=== PATIENT | female | born 1990 | race Caucasian/White ===

== ENCOUNTER 2016-10-29 11:04 | Inpatient (IN) | payer OTHER ==
[~2016-10-29] VITALS: Ht 160 cm; Wt 77.6 kg
[2016-10-30] MEDS ORDERED: LACTATED RINGER'S 1000ML 1,000 ML IV PRN (01:22)
[2016-10-30] MEDS ORDERED: DINOPROSTONE 10 MG INSERT PV STA (01:25)
[2016-10-30] MEDS ORDERED: PRENTAB26 PO (01:30)
[2016-10-30] MEDS ORDERED: BUPR8SUB19 SL (01:30)
[2016-10-30 01:43] LABS: HEMATOCRIT 35.9 % (37-47); MEAN CELL VOLUME 100.6 fL (80-100); MEAN CORPUSCULAR HGB CONC 34.8 g/dl (32-36); MEAN PLATELET VOLUME 10.3 fL (7.4-10.4); PLATELET COUNT 262 K/uL (130-400); RED BLOOD COUNT 3.57 M/uL (4.2-5.4); WHITE BLOOD COUNT 9.12 K/uL (4.8-10.8)
[2016-10-30] MEDS ORDERED: BUTORPHANOL TARTRATE 1 MG/ML VIAL IV PRN (02:00)
[2016-10-30] MEDS: LACTATED RINGER'S 1000ML 1,000 ML IV SCH ×3 (02:00→20:05)
[2016-10-30] MEDS ORDERED: ONDANSETRON INJ 2 MG/ML 2 ML VIAL IV PRN ×2 (02:00→05:30)
[2016-10-30 02:49] LABS: BENZODIAZEPINE, URINE NEG (NEG); COCAINE,URINE NEG (NEG); PHENCYCLIDINE, URINE NEG (NEG)
--- NOTE | 2016-10-30 03:09 | HISTORY & PHYSICAL EXAMINATION ---
DATE OF ADMISSION: 10/30/2016 CHIEF COMPLAINT: Induction of labor. HISTORY OF PRESENT ILLNESS: The patient is a 26-year-old G1, P0 at 41 weeks of gestation who is presenting for induction of labor for postdates. She has no complaints, no contractions, leakage of fluid, or vaginal bleeding. She reports good movements. Her has been uncomplicated except: 1. She is a smoker. 2. On Subutex, h/o heroin use. Agrees for UDS (Urine drug screening) today. 3. Septate uterus. 4. Polyhydramnios, resolved. PAST MEDICAL HISTORY: As above. PAST SURGICAL HISTORY: None. ALLERGIES: No known drug allergies. MEDICATIONS: Subutex 8 mg sublingual daily, vitamins. SOCIAL HISTORY: The patient is a smoker. Smokes 1/2 pack cigarette/ day. She used alcohol after her LMP, none since knowledge of . She has a history of heroin use and now on Subutex. GYNECOLOGIC HISTORY: The patient denies any history of STDs including Chlamydia, gonorrhea, herpes. This is her first . LABS: Blood type is A positive, antibody screen negative, rubella titer positive, RPR nonreactive, hepatitis B surface antigen negative. GC and chlamydia cultures were negative. Urine culture was negative. H and H was 13/39. Quad screening testing was negative. Glucola was normal 101 mg per deciliter. Repeat H and H was 10.7/31.9, platelets 290. GBS culture was negative on 09/18/2016. PHYSICAL EXAMINATION: VITAL SIGNS: Stable, afebrile. CARDIOVASCULAR SYSTEM: S1, S2. RRR. LUNGS: Clear to auscultation bilaterally. ABDOMEN: Soft, gravid. EXTREMITIES: Nontender, no edema. PELVIC: Cervix 1-2 cm/ 50%/ -2. heart rate 140s, reactive. Kelly, mild irregular contractions. ASSESSMENT AND PLAN: The patient is a 26-year-old G1, P0 at 41 weeks of gestation presenting for induction of labor for postdates. Vital signs stable, afebrile. GBS negative. heart rate reassuring. Plan Admit, start IV fluids, cervical ripening with Cervidil. UDS Anticipate spontaneous vaginal delivery. MTDD
[2016-10-30] MEDS ORDERED: BUPIVACAINE 0.25% 30 ML VIAL ONE ×2 (04:40→23:00)
[2016-10-30] MEDS ORDERED: EpHEDrine SULFATE INJ 50 MG/ML AMP ONE (04:41)
[2016-10-30] MEDS ORDERED: FENTANYL 2MCG/ML ROPIV 1.25MG/ML 100ML BAG EPI ONE (04:41)
[2016-10-30] MEDS ORDERED: FENTANYL CITRATE INJ 50 MCG/1 ML 2 ML VIAL ONE ×3 (04:41→23:01)
[2016-10-30] MEDS ORDERED: LACTATED RINGER'S 1000ML 500 ML IV PRN ×2 (05:20→13:34)
[2016-10-30] MEDS ORDERED: NALOXONE HCL INJ 1 MG in SODIUM CHLORIDE 0.9% 1000ML 1,000 ML IV PRN (05:20)
[2016-10-30] MEDS ORDERED: DiphenhydrAMINE HCL 50 MG/ML VIAL IV PRN (05:30)
[2016-10-30] MEDS ORDERED: NALBUPHINE HCL INJ 10 MG/ML AMP IV PRN (05:30)
[2016-10-30] MEDS ORDERED: EpHEDrine SULFATE INJ 50 MG/ML AMP IV PRN (05:30)
[2016-10-30] MEDS ORDERED: NALOXONE HCL INJ 0.4 MG/1 ML VIAL/CARP IV PRN (05:30)
[2016-10-30] MEDS: FENTANYL 2MCG/ML ROPIV 1.25MG/ML 100ML BAG EPI PRN ×6 (07:10→23:35)
[2016-10-30] MEDS: BUPRENORPHINE HCL 8 MG SUBL SL SCH ×2 (09:42→20:05)
[2016-10-30] MEDS ORDERED: OXYTOCIN 30 UNITS/500ML NSS IV PRN (13:45)
[2016-10-31] VITALS (9 sets, daily range): BP systolic 95–110; BP diastolic 60–73; PULSE 69–73; TEMP 36.7–36.8; O2SAT 95–100
[2016-10-31] MEDS ORDERED: TERBUTALINE SULFATE 1 MG/ML VIAL SQ STA (01:15)
[2016-10-31] MEDS ORDERED: NURSING VERBAL MED ORDER ONE (01:15)
[2016-10-31] MEDS: LACTATED RINGER'S 1000ML 1,000 ML IV SCH (01:16)
[2016-10-31] MEDS ORDERED: CEFAZOLIN IV 2,000 MG in DEXTROSE 5% 50ML 50 ML IV STA (03:52)
[2016-10-31] MEDS ORDERED: CITRIC ACID/SODIUM CITRATE 15 ML UDC PO STA (03:52)
[2016-10-31] MEDS ORDERED: MoRPHine SULFATE PF 1 MG/ML 10 ML AMP/VIAL ONE (04:33)
[2016-10-31] MEDS ORDERED: LIDOCAINE/EPINEPHRINE 2% 1:200,000 20 ML SDV ONE (04:53)
[2016-10-31] MEDS ORDERED: METOCLOPRAMIDE HCL INJ 5 MG/ML 2 ML VIAL ONE (04:53)
[2016-10-31] MEDS ORDERED: ONDANSETRON INJ 2 MG/ML 2 ML VIAL ONE (04:53)
[2016-10-31] MEDS ORDERED: OXYTOCIN INJ 10 UNITS/ML VIAL ONE ×3 (04:53→05:13)
[2016-10-31] MEDS ORDERED: DC INTRASPINAL MORPHINE SCH (04:55)
[2016-10-31] MEDS ORDERED: BENZOCAINE 20% AER SPR 82.5 GM CAN EXT PRN (05:30)
[2016-10-31] MEDS ORDERED: LACTATED RINGER'S 1000ML 1,000 ML IV SCH (05:30)
[2016-10-31] MEDS ORDERED: SENNA 8.6 MG TAB PO PRN (05:30)
[2016-10-31] MEDS ORDERED: LANOLIN OINT EXT PRN ×2 (05:30)
[2016-10-31] MEDS ORDERED: HYDROCORTISONE ACETATE 25 MG SUPP PR PRN (05:30)
[2016-10-31] MEDS ORDERED: DIPHTHERIA/TETANUS/PERTUSSIS 0.5 ML SYR/VIAL IM. ONE (05:30)
[2016-10-31] MEDS ORDERED: MAGNESIUM HYDROXIDE SUSP 30 ML UDC PO PRN (05:30)
[2016-10-31] MEDS ORDERED: SUPERCREAM 0.870 % 15GM JAR EXT PRN (05:30)
--- NOTE | 2016-10-31 05:37 | [facility] Post Operative Brief Note ---
Immediate Operative Summary Operative Date October 31, 2016. Pre-Operative Diagnosis IUP 41.1 weeks; failure to progress, hx subutex use Post-Operative Diagnosis Same Procedure(s) Performed Primary Caesarean Section for a live male child at [address] Foley Export Clerk Surgeon(s) Rosie Aguirre RN Estimated Blood Loss 800cc Findings Patient delivered a viable male infant in the vertex position at 0446 on with 's of 9 at 1 minute and 10 at 5 minutes weighing 8# 11.4 oz. Cord blood obtained. An intact placenta with a 3 VC delivered manually at 0448 and sent to pathology. Normal uterus and bilateral tubes and ovaries noted. Both patient and baby tolerated the procedure well and was sent to recovery with stable vital signs. Fluids (cc crystalloids) 2200 Specimens Placenta (Exam) Cord Blood Drains Johns to gravity Anesthesia epidural bolus Complication(s) None Disposition L&D
[2016-10-31] MEDS ORDERED: NALOXONE HCL INJ 1 MG in SODIUM CHLORIDE 0.9% 1000ML 1,000 ML IV PRN ×4 (05:45)
[2016-10-31] MEDS ORDERED: SODIUM CHLORIDE 0.9% 1000ML 1,000 ML IV PRN (05:45)
[2016-10-31] MEDS ORDERED: ONDANSETRON INJ 2 MG/ML 2 ML VIAL IV PRN ×3 (05:45→21:00)
[2016-10-31] MEDS ORDERED: NALOXONE HCL INJ 0.08 MG in SYRINGE 1.8 ML IV PRN (05:45)
[2016-10-31] MEDS ORDERED: ATROPINE SULFATE 0.1 MG/ML 5ML SYR IV PRN (05:45)
[2016-10-31] MEDS ORDERED: NALOXONE HCL 0.4 MG/1 ML VIAL/CARP IV PRN (05:45)
[2016-10-31] MEDS ORDERED: NALBUPHINE HCL INJ 10 MG/ML AMP IV PRN (05:45)
[2016-10-31] MEDS ORDERED: NO NARCOTICS OR SEDATIVES SCH (05:45)
[2016-10-31] MEDS ORDERED: PROMETHAZINE HCL INJ 12.5 MG in SODIUM CHLORIDE 0.9% 50ML 50 ML IV PRN (05:45)
[2016-10-31] MEDS ORDERED: KETOROLAC TROMETHAMINE 30 MG/ML VIAL IV. PRN ×3 (05:45→21:00)
[2016-10-31] MEDS ORDERED: DiphenhydrAMINE HCL 50 MG/ML VIAL IV PRN ×2 (05:45→14:00)
[2016-10-31] MEDS ORDERED: MEPERIDINE HCL 25 MG/ML CARP IV PRN ×2 (05:45)
[2016-10-31] MEDS ORDERED: MoRPHine SULFATE PF 1 MG/ML 10 ML AMP/VIAL EPI PRN (05:45)
[2016-10-31] MEDS ORDERED: LACTATED RINGER'S 1000ML 500 ML IV PRN (05:45)
[2016-10-31] MEDS ORDERED: EpHEDrine SULFATE INJ 50 MG/ML AMP IV PRN ×2 (05:45)
[2016-10-31] MEDS ORDERED: PROMETHAZINE HCL INJ 25 MG in SODIUM CHLORIDE 0.9% 50ML 50 ML IV PRN (05:45)
[2016-10-31] MEDS ORDERED: PHENYLEPHRINE 100MCG/ML 5ML SYR IV PRN (05:45)
[2016-10-31] MEDS: OXYTOCIN INJ 30 UNITS in LACTATED RINGER'S 1000ML 1,000 ML IV SCH ×2 (06:37→16:01)
--- NOTE | 2016-10-31 07:44 | Anesthesiology Progress Note ---
Anesthesia Post Op Note Date & Time October 31, 2016 at 07:44 Notes Mental Status: alert / awake / arousable, participated in evaluation Pt Amnestic to Procedure: Yes Nausea / Vomiting: adequately controlled Pain: adequately controlled Airway Patency, RR, SpO2: stable & adequate BP & HR: stable & adequate Hydration State: stable & adequate Anesthetic Complications: no major complications apparent
--- NOTE | 2016-10-31 07:47 | OPERATIVE REPORT ---
DATE OF OPERATION: 10/31/2016 PREOPERATIVE DIAGNOSES: 1. Intrauterine at 41 weeks and 1 day gestation. 2. Failure to progress. 3. History of Subutex use. POSTOPERATIVE DIAGNOSES: Same. OPERATIVE PROCEDURE: Primary low transverse section. SURGEON: Dr. Foley. NAILHEAD SETTER: Rosie Aguirre RN. ANESTHESIA: Bolus of her epidural. ESTIMATED BLOOD LOSS: 800 mL IV FLUIDS: 2200 mL crystalloids. URINE OUTPUT: 200 mL clear yellow urine. SPECIMENS: Cord blood and placenta to pathology. DRAINS: Johns to gravity. COMPLICATIONS: None. DISPOSITION: Labor and delivery. OPERATIVE FINDINGS: The patient delivered a viable male in the vertex position at 4:46 a.m. on 10/31/2016 with Apgars of 9 at 1 minute and 10 at 5 minutes, weighing 8 pounds 11 ounces. Please see nitroglycerin separator operator's notes for further baby assessment. Cord blood was obtained and an intact placenta with 3-vessel cord delivered manually at 4:48 and was sent to pathology. Normal uterus and bilateral tubes and ovaries were noted. Both patient and baby tolerated the surgery well and were sent to recovery with stable vital signs. INDICATIONS FOR PROCEDURE: The patient is a 26-year-old 1 at 41 weeks and 1 day gestation who was admitted to labor and delivery on the morning of 10/30/2016 for a scheduled induction of labor secondary to postdates. On admission, Cervidil 10 mg intravaginally was placed. She received an epidural for anesthesia. After 12 hours of Cervidil, it was removed and was found to be 3-4 cm, 70% effaced and -2 station. Oxytocin per protocol was begun for labor augmentation. Artificial rupture of membranes was performed at 15:44 with clear amniotic fluid noted. Despite adequate contractions, the patient failed to progress further than 8-9 cm and -1 station. The patient had to have her epidural replaced due to pain control being inadequate. Despite replacement of her epidural, she continued to be painful and therefore a primary section was decided secondary to failure to progress. Risks, benefits and alternatives were discussed and informed consent was obtained. OPERATIVE PROCEDURE IN DETAIL: The patient was taken to the operating room where her epidural was bolused. She was immediately placed in the dorsal supine position with a left lateral tilt. She was then prepped and draped in a manner appropriate for the procedure. Once anesthesia was found to be adequate, a Pfannenstiel skin incision was made 2 fingerbreadths above the pubic symphysis and was carried down through to the layer of the rectus fascia. Fascia was nicked in the midline and extended bilaterally with curved Bateman scissors and electrocautery. The superior aspect of the fascial incision was grasped with Alec clamps, elevated, and the rectus muscles were dissected off with the use of the curved Bateman scissors and electrocautery. Likewise, the inferior aspect of the fascial incision was grasped with Alec clamps, elevated, and the rectus muscles were dissected off with the use of the curved Bateman scissors. The rectus muscles were in midline. Peritoneum was grasped with hemostats x2 and entered with Metzenbaum scissors. The peritoneal incision was then extended cephalocaudally with gentle traction. The bladder blade was then placed within the abdomen. The vesicouterine peritoneum was identified and a bladder flap was created with Metzenbaum scissors and digital traction. The bladder flap was reincorporated beneath the Gabbi blade. A transverse incision was then made on the uterus and extended bilaterally with bandage scissors and digital traction. The baby's head was identified and delivered through the incision without difficulty along with the rest of the body. Baby was bulb suctioned at delivery. Cord was clamped x2 and cut. The baby was immediately handed to an awaiting nitroglycerin separator operator for further evaluation and management. Please see their notes for further baby assessment. Cord blood was then obtained and an intact placenta with 3-vessel cord was delivered through the incision manually. The uterus was then exteriorized and wrapped in a moist laparotomy sponge. The uterus was then cleared of any blood clots and debri with laparotomy sponge. The uterine incision was grasped with ring forceps at 4 quadrants and was closed with 0 Vicryl suture in continuous locking fashion. A second 0 Vicryl suture was used in imbricating fashion to ensure hemostasis. Any residual bleeding was suture ligated with 0 Vicryl suture in a [id number] interrupted fashion. Excellent hemostasis was noted. The posterior cul-de-sac was irrigated with warm saline solution. The uterus was then placed back within its normal anatomic position within the abdomen. The bladder flap was reapproximated to the lower uterine segment with 3-0 Vicryl suture in continuous running fashion. The anterior cul-de-sac was then irrigated with warm saline solution. Excellent hemostasis was noted at the incision. All instruments were then removed from the abdomen. The peritoneum was grasped with Farideh clamps to 4 quadrants and was closed with 2-0 Vicryl suture in continuous running fashion. The rectus fascia was then closed with 0 Vicryl suture in continuous running fashion. Subcutaneous tissue was reapproximated with 2-0 Vicryl suture in an interrupted fashion. Skin was then closed with terell. Excellent hemostasis was noted through all tissue layers. Both patient and baby tolerated the surgery well and were sent to recovery with stable vital signs. All sponge and instrument counts were found to be correct x2. I attest to the content of the Intraoperative Record and any orders documented therein. Any exceptio ns are noted below.
[2016-10-31] MEDS: DOCUSATE SODIUM 100 MG CAP PO SCH ×2 (08:00→20:19)
[2016-10-31] MEDS ORDERED: BUPRENORPHINE HCL 8 MG SUBL SL SCH (08:00)
[2016-10-31] MEDS: PRENATAL VITAMIN TAB PO SCH (08:00)
[2016-10-31] MEDS: FERROUS SULFATE 325 MG TAB PO SCH (08:00)
[2016-10-31] MEDS: BUPRENORPHINE HCL 8 MG SUBL SL SCH ×2 (08:08→20:19)
[2016-10-31] MEDS: SIMETHICONE 80 MG CHEW PO SCH ×4 (09:30→20:19)
[2016-10-31] MEDS ORDERED: ACETAMINOPHEN IV 100 ML IV PRN (14:00)
[2016-10-31] MEDS ORDERED: ZOLPIDEM TARTRATE 5 MG TAB PO PRN (21:00)
[2016-10-31] MEDS: IBUPROFEN 600 MG TAB PO PRN (21:32)
[2016-10-31] MEDS: OXYCODONE/ACETAMINOPHEN 5-325 TAB PO PRN (21:33)
[2016-11-01 04:30] VITALS: BP 103/66; PULSE 69; TEMP 36.7; O2SAT 98
[2016-11-01] MEDS: IBUPROFEN 600 MG TAB PO PRN ×5 (04:36→22:16)
[2016-11-01] MEDS: OXYCODONE/ACETAMINOPHEN 5-325 TAB PO PRN ×5 (04:37→22:16)
[2016-11-01 06:28] LABS: BASO % 0.2 %; BASO ABS # 0.02 K/uL (0-0.2); COMPLETE YES; EOS % 0.5 %; HEMATOCRIT 29.5 % (37-47); IG% 0.4 %; LYMPH % 19.2 %; LYMPH ABS # 2.48 K/uL (1.2-3.4); MEAN CELL VOLUME 100.3 fL (80-100); MEAN CORPUSCULAR HEMOGLOBIN 34.7 pg (25-34); MEAN CORPUSCULAR HGB CONC 34.6 g/dl (32-36); MEAN PLATELET VOLUME 10.2 fL (7.4-10.4); MONO % 4.7 %; PLATELET COUNT 255 K/uL (130-400); RED BLOOD COUNT 2.94 M/uL (4.2-5.4); WHITE BLOOD COUNT 12.94 K/uL (4.8-10.8)
--- NOTE | 2016-11-01 07:35 | OB/GYN Progress Note ---
SHRIMPING BOAT CAPTAIN Progress Note Date of Service: November 01, 2016. Patient is seen and examined. She feels well, no complaints. Pain is under control with oral meds. Ambulating without dizziness Voiding without difficulty Tolerating regular diet with out N&V Flatus + BM NEG Bleeding is minimal No fever/ chills/ CP/ SOB/ N&V/ Leg pain Breast feeding without problems Date Time Temp Pulse Resp B/P Pulse Ox O2 Delivery O2 Flow Rate FiO2 11/01/16 04:30 36.7 69 18 103/66 98 Room Air 10/31/16 23:45 97 Room Air 10/31/16 23:45 36.8 71 18 95/60 97 Room Air 10/31/16 21:15 20 100 10/31/16 20:00 18 97 10/31/16 19:20 20 96 10/31/16 19:20 36.7 69 20 103/68 96 Room Air 10/31/16 18:00 16 98 10/31/16 17:00 18 97 10/31/16 16:00 18 95 10/31/16 15:00 16 96 10/31/16 14:20 16 98 10/31/16 14:20 98 Room Air 10/31/16 14:20 36.8 73 16 110/73 98 Room Air Last 24 Hours Test 11/01/16 06:12 White Blood Count 12.94 K/uL Red Blood Count 2.94 M/uL Hemoglobin 10.2 g/dL Hematocrit 29.5 % Mean Corpuscular Volume 100.3 fL Mean Corpuscular Hemoglobin 34.7 pg Mean Corpuscular Hemoglobin Concent 34.6 g/dl Platelet Count 255 K/uL Mean Platelet Volume 10.2 fL Neutrophils (%) (Auto) 75.0 % Lymphocytes (%) (Auto) 19.2 % Monocytes (%) (Auto) 4.7 % Eosinophils (%) (Auto) 0.5 % Basophils (%) (Auto) 0.2 % Neutrophils # (Auto) 9.71 K/uL Lymphocytes # (Auto) 2.48 K/uL Monocytes # (Auto) 0.61 K/uL Eosinophils # (Auto) 0.07 K/uL Basophils # (Auto) 0.02 K/uL RDW Standard Deviation 49.3 fL RDW Coefficient of Variation 13.4 % Immature Granulocyte % (Auto) 0.4 % Immature Granulocyte # (Auto) 0.05 K/uL PE: General: Alert, orientedx3, NAD CVS: S1S2 RRR Lungs; CTAB Abd: soft, NT, fundus firm, below Umbilicus Incision: Clean, dry, intact Perineum intact, Lochia rubra minimal Ext; NT, 2+/2+ edema AP: 26 yo s/p C Section, pod# 1 VSS Afebrile doing well Continue routine postop care Encourage ambulation, PO intake All questions were answered
[2016-11-01 08:00] VITALS: BP 104/68; PULSE 78; TEMP 36.6
[2016-11-01] MEDS: BUPRENORPHINE HCL 8 MG SUBL SL SCH ×2 (09:00→19:47)
[2016-11-01] MEDS: PRENATAL VITAMIN TAB PO SCH (09:07)
[2016-11-01] MEDS: FERROUS SULFATE 325 MG TAB PO SCH (09:07)
[2016-11-01] MEDS: DOCUSATE SODIUM 100 MG CAP PO SCH ×2 (09:07→19:47)
[2016-11-01] MEDS: SIMETHICONE 80 MG CHEW PO SCH ×4 (09:07→19:47)
[2016-11-01 10:30] VITALS: O2SAT 98
[2016-11-01 15:30] VITALS: BP 119/79; PULSE 71; TEMP 36.8
[2016-11-01] MEDS ORDERED: BISACODYL 5 MG TABEC PO ONE (22:00)
[2016-11-02 00:10] VITALS: BP 103/68; PULSE 69; TEMP 36.4; O2SAT 99
[2016-11-02] MEDS ORDERED: BISACODYL 10 MG SUPP PR PRN (05:30)
[2016-11-02] MEDS: IBUPROFEN 600 MG TAB PO PRN ×4 (05:47→20:20)
[2016-11-02] MEDS: OXYCODONE/ACETAMINOPHEN 5-325 TAB PO PRN ×4 (05:48→20:21)
[2016-11-02 06:55] LABS: HEMATOCRIT 29.6 % (37-47)
[2016-11-02 07:17] VITALS: BP 111/74; PULSE 64; TEMP 36.5; O2SAT 99
[2016-11-02] MEDS: FERROUS SULFATE 325 MG TAB PO SCH (08:44)
[2016-11-02] MEDS: DOCUSATE SODIUM 100 MG CAP PO SCH ×2 (08:44→19:49)
[2016-11-02] MEDS: SIMETHICONE 80 MG CHEW PO SCH ×4 (08:44→19:49)
[2016-11-02] MEDS: PRENATAL VITAMIN TAB PO SCH (08:44)
[2016-11-02] MEDS: BUPRENORPHINE HCL 8 MG SUBL SL SCH ×2 (08:45→19:49)
--- NOTE | 2016-11-02 10:26 | OB/GYN Progress Note ---
SOFTWARE SALES Progress Note Date of Service November 02, 2016. Subjective conversation w/ patient, physical exam Ambulation: ambulating normally Voiding: no voiding problems Passing Gas: Yes Diet Tolerance: Regular Diet Lochia: Small Pain: 2/ Notes: Doing well, no concerns. Pain well controlled. Lochia minimal. Ambulating without difficulty. Incision is c/d/i. Tolerating regular diet. Would like to go home today. Objective Vital Signs Date Time Temp Pulse Resp B/P Pulse Ox O2 Delivery O2 Flow Rate FiO2 11/02/16 07:17 36.5 64 20 111/74 99 Room Air 11/02/16 00:10 99 Room Air 11/02/16 00:10 36.4 69 18 103/68 99 Room Air 11/01/16 15:30 36.8 71 20 119/79 Room Air 11/01/16 15:30 Room Air 11/01/16 10:30 98 Room Air Physical Exam General Appearance: WELL-APPEARING, WD/WN Respiratory/Chest: chest non-tender, lungs clear Cardiovascular: regular rate, rhythm Abdomen: normal bowel sounds, soft Fundus: Firm Incision Description: Clean, Dry & Intact Extremities: normal range of motion, non-tender, no calf tenderness Laboratory Results Last 24 Hours Test 11/02/16 06:37 Hemoglobin 10.0 g/dL Hematocrit 29.6 % Assessment and Plan Post-Op Day Number: 2 Continue Routine Care: -D/C home today -F/U within in 1 week for staple removal.
[2016-11-02] MEDS ORDERED: OXYC-57 PO (10:27)
[2016-11-02] MEDS ORDERED: MTR600X PO (10:27)
--- NOTE | 2016-11-02 10:28 | Discharge Instructions ---
Discharge Instructions Date of Service November 02, 2016. Admission Reason for Admission: Induction Discharge Discharge Diagnosis / Problem: Primary section Discharge Goals Goal(s): Routine recovery after Activity Recommendations Activity Limitations: per Instructions/Follow-up section . Instructions / Follow-Up Instructions / Follow-Up ACTIVITY RECOMMENDATIONS: * Gradual return to full activity over the next 2-3 weeks. * No lifting - nothing heavier than baby over the next 2-3 weeks. * Do not engage in vigorous exercise, sexual activity or sports until cleared by your physician. * Do not drive or operate any motorized equipment until cleared by your physician. * You may shower/bathe daily. BREAST CARE: If you are not breast feeding: * Wear a supportive bra 24 hours a day for one to two weeks. * Avoid stimulating your breasts and nipples as much as possible during the first few weeks after delivery. * When taking a shower, have the warm water hit your back, not breasts. * When your breasts feel full, apply ice packs. Usually three to four times a day helps ease the discomfort. * Take a mild pain medication (Tylenol/Motrin) when you are uncomfortable. If breast feeding: * Use breast milk to lubricate nipples. Lansinoh cream may be used for sore nipples. You do not need to remove cream prior to breast feeding. If using a different brand of cream, check the label for directions regarding removal of cream prior to nursing. * Wear a supportive bra. * If having problems with breasts or breast feeding, call a education consultant or your health care provider. OVER THE COUNTER MEDICATION: * For discomfort or pain, you may use Acetaminophen (Tylenol), Ibuprofen (Advil ), or Naproxen (Aleve) following the package directions. * For constipation you may use Colace following the package directions. SPECIAL CARE INSTRUCTIONS: When you are discharged from the hospital, it is important for you to follow the instructions listed below: * During the first week at home, you should be able to care for yourself and your baby. In addition, the usual light household activities are encouraged. * Limit your activities to the way you feel. Do not try to clean the house or move furniture. Be sensible. * If you actively engage in sports and have done so up until the time of your delivery, you may resume these activities as soon as you feel able. This may take up to one month or even longer. Use good judgment. * Continue to take your vitamins for at least six weeks after the of your baby. * Your diet need not be limited unless you were on a special diet before your delivery. Breast-feeding mothers need around 2500 calories per day and at least 64-80 ounces of fluid per day (8 to 10 glasses). * You should eat foods from the four major food groups. Crash diets or fad diets are to be avoided. Eating lean meats, fresh fruits and vegetables, low-fat dairy products, high fiber foods and a regular exercise program, will help you get back to your pre- weight without putting your health at risk. * Constipation is sometimes a problem after delivery. Take a mild laxative as needed. If breast feeding, Milk of Magnesia is acceptable to use. You may use a suppository or Fleets enema if no episiotomy. * A daily shower or tub bath is suggested. Be sure to thoroughly and gently dry the perineum. * A bloody vaginal discharge will usually continue until around four weeks post . A small amount of bleeding may continue for as long as six weeks. Vaginal discharge changes from the bright red bleeding after delivery to pink then brownish and finally yellowish-pink before becoming white and disappearing. * Bleeding may increase with activity. Your first period may come in 4-8 weeks. If you are breast feeding, your period may be delayed even longer. * Kendrick (sex) can begin whenever both you and your partner feel comfortable and do not have any form of genital infection. It is recommended that you wait at least six weeks for internal and external healing to occur. If you have questions, please talk to your health care practitioner. A condom should be used to prevent infection and . * Foreplay, gentle intercourse and lubrication is very important the first several times to prevent pain. A water-based lubricant such as K-Y jelly or Astroglide may be used. * Tampons and/or Douching should be avoided until after six weeks check-up. * If you have RH negative blood and your baby is RH positive, you will receive RHOGAM by injection prior to discharge. The nurse will give you a card to keep with you that has the date and place that you received RHOGAM after delivery. * During your care, you had a Rubella screen done to check for the presence of rubella antibodies in your blood. If your test was negative, you will receive a Rubella vaccine prior to discharge. This vaccine may cause a fever, soreness at the injection site and flu-like symptoms. If these symptoms persist, notify your health care practitioner. is not advised for three months after a Rubella vaccine. * Verbalizes understanding of car seat law as reviewed with patient nursing. * Car Seat hand-out given and reviewed with patient by nursing. * Shaken baby information reviewed with patient by nursing. Call you doctor if: * Heavy bleeding (saturating several pads an hour) or passing clots the size of your fist. * A fever >101 degrees F (38.3 degrees C) on two occasions four hours apart and /or chills. * Unusual pain in the pelvic or vaginal areas. Pain should improve each day . * Call the doctor for any increased redness, drainage or swelling around the incision and any pain unrelieved by prescribed pain medication. * Any signs or symptoms of phlebitis (possible blood clots forming in the veins ): leg pain, warm, red or swollen area on leg. * "Baby Blues" lasting longer than two weeks. If you have any questions or concerns, call your health care practitioner at . FOLLOW-UP VISIT: * Incision check (staple removal) in 1 week. Please call doctor's office at to set up appointment. * Please call the office at to schedule a 6 week examination. It is important you keep this appointment. * It is important for you to make arrangements for either yearly or twice yearly check-ups thereafter. Current Hospital Diet Patient's current hospital diet: Regular OB Diet Discharge Diet Recommended Diet: Regular OB Diet Procedures Procedures Performed: Primary Caesarean Section for a live male child at 0446 Pending Studies Studies pending at discharge: no Medical Emergencies . Who to Call and When: Medical Emergencies: If at any time you feel your situation is an emergency, please call [phone] immediately. . Non-Emergent Contact Non-Emergency issues call your: Primary Care Provider, Tool Dresser . . "Provider Documentation" section prepared by Parish Foley. . VTE Core Measure Inpt VTE Proph given/why not?: Treatment not indicated
[2016-11-02 15:30] VITALS: BP 118/81; PULSE 76; TEMP 36.5
[2016-11-02 23:45] VITALS: BP 130/80; PULSE 57; TEMP 36.5
[2016-11-03] MEDS: IBUPROFEN 600 MG TAB PO PRN ×3 (02:16→12:36)
[2016-11-03] MEDS: OXYCODONE/ACETAMINOPHEN 5-325 TAB PO PRN ×3 (02:17→12:36)
[2016-11-03 07:33] VITALS: BP 130/79; PULSE 67; TEMP 36.4; O2SAT 100
[2016-11-03] MEDS: FERROUS SULFATE 325 MG TAB PO SCH (07:42)
[2016-11-03] MEDS: SIMETHICONE 80 MG CHEW PO SCH ×2 (07:42→12:36)
[2016-11-03] MEDS: PRENATAL VITAMIN TAB PO SCH (07:42)
[2016-11-03] MEDS: DOCUSATE SODIUM 100 MG CAP PO SCH (07:42)
[2016-11-03] MEDS: BUPRENORPHINE HCL 8 MG SUBL SL SCH (08:29)
--- NOTE | 2016-11-03 11:05 | OB/GYN Progress Note ---
AMMUNITION COMPONENTS INSPECTOR Progress Note Date of Service November 03, 2016. Subjective conversation w/ patient Ambulation: ambulating normally Voiding: no voiding problems Passing Gas: Yes Diet Tolerance: Regular Diet Lochia: Small Pain: minimal Notes: Doing well, would like to go home today. Baby is discharged as well. Objective Vital Signs Date Time Temp Pulse Resp B/P Pulse Ox O2 Delivery O2 Flow Rate FiO2 11/03/16 07:33 36.4 67 20 130/79 100 Room Air 11/02/16 23:45 36.5 57 18 130/80 Room Air 11/02/16 23:45 Room Air 11/02/16 15:30 36.5 76 20 118/81 Room Air 11/02/16 15:30 Room Air Physical Exam General Appearance: WELL-APPEARING Respiratory/Chest: chest non-tender Cardiovascular: regular rate, rhythm Abdomen: normal bowel sounds, soft Fundus: Firm Incision Description: Clean, Dry & Intact Extremities: normal range of motion, non-tender, no calf tenderness Assessment and Plan Post-Op Day Number: 3 Continue Routine Care: -d/c home today -f/u in 1 week for staple removal
[2016-11-03 14:10] VITALS: BP_DIAS 79; PULSE 67; TEMP 36.4
== END 2016-11-03 14:10 | disposition home or self-care (01) | DRG 766 ==
LOC: C.LD 10-30 00:12 → C.OBG 10-31 13:52
PROVIDERS: ADMIT Obstetrics & Gynecology; ATTEND Obstetrics & Gynecology
PROC: 10D00Z1 Extraction of Products of Conception, Low, Open Approach (ICD-10-PCS; principal; 2016-10-31 03:53)
PROC: 10903ZC Drainage of Amniotic Fluid, Therapeutic from Products of Conception, Percutaneous Approach (ICD-10-PCS; principal; 2016-10-31 03:53)
DX: O48.0 Post-term pregnancy (principal); O66.40 Failed trial of labor, unspecified; O99.334 Smoking (tobacco) complicating childbirth; O34.593 Maternal care for other abnormalities of gravid uterus, third trimester; F17.200 Nicotine dependence, unspecified, uncomplicated; Z37.0 Single live birth; Q51.2 Other doubling of uterus; Z3A.41 41 weeks gestation of pregnancy

== ENCOUNTER 2021-01-31 14:40 | Inpatient (IN) ==
[2021-01-31] MEDS ORDERED: OXYTOCIN 30 UNITS/500 ML BAG IV PRN ×2 (15:28→20:37)
--- NOTE | 2021-01-31 15:38 | History & Physical Report ---
Date of Service January 31, 2021 Assessment & Plan (1) Encounter for trial of labor: Plan: Admit in early labor for TOLAC Anesthesia notified History of Present Illness Chief Complaint: contraction pain Primary Care Provider: PT DECLINED 30 F P1001 at 40.4 weeks with onset of contractions earlier today at 4 AM. Her previous was a for failure to progress in labor. GBS is negative. Covid is pending. Hep C is positive. She is on Subutex 8 mg daily. Patient desires and has been counseled as to the risks, benefits and alternatives to a TOLAC. She signed the consent form. Allergies Allergy/AdvReac Type Severity Reaction Status Date / Time No Known Allergies Allergy Verified 09/16/20 18:37 Home Medications Medication Instructions Recorded Confirmed Type vitamin with calcium 1 tab PO DAILY 09/16/20 01/31/21 History no.72-iron 27 mg-folic acid 1 mg tablet ( Vitamins Plus Low Iron) buprenorphine HCl 8 mg sublingual 4 mg SUBLINGUAL BID 01/31/21 01/31/21 History tablet Patient History Medical History (Updated 01/31/21 @ 15:51 by Delta Argueta MD) Anxiety Uses medical marijuana (vapes) Medical marijuana use Opioid dependence on agonist therapy History of heroin abuse, on Subutex Surgical History (Updated 01/31/21 @ 15:49 by Delta Argueta MD) H/O section Social History Smoking Status: Heavy tobacco smoker Second Hand Exposure: Yes; Do You Dip or Chew Tobacco: No; Tobacco Cessation Education Requested by Patient: No Hx Alcohol Use: No Hx Substance Use: No Preferred Language: Indonesian Communication Ability: Effective Physical Plant Employee Required: No Beliefs That Will Affect Care: None marital status: Single Current Living Situation: Family Current Living Situation Comment: Lives at home with boyfriend and 4 year old son Jose current occupational status: employed current occupation: repair supervisor Other Information That Helps Us Care for You: No Feels Safe at Home: Yes Safety Concerns: Feels Safe At This Time Assistive Devices: None OB 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 History wnl Physical Exam Constitutional: WD/WN, vitals as above + acute distress Respiratory: normal respiratory effort, lungs clear to auscultation Cardiovascular: RRR, no murmur, no edema Gastrointestinal (Abdomen): normal bowel sounds, soft, nontender, no hepatosplenomegaly Skin: no rashes, warm and dry Neurologic: patellar DTR's 2+ bilat, sensation intact Psychiatric: A+Ox3, euthymic affect Genitourinary: normal external appearance OB Exam Abdomen: + fundal height, + estimated weight (7-8 lbs) and + regular contractions Manual OB Exam: + cervical dilation 2 cm, + cervical effacement 80% and + station -1 OB Exam Monitor Tracing: + external FHT monitor used, + external uterine monitor used, + category I and + normal FHT variability cervix soft and posterior Results & Data ([facility]) Vital Signs (Past 12 Hours) Vital Signs Temp Pulse Resp BP 01/31/21 15:07 101 H 108/69 01/31/21 14:58 36.8 C 101 H 20 108/69 Code Status & VTE Plan VTE Prophylaxis Plan VTE Prophylaxis will be ordered: No
[2021-01-31] MEDS: LACTATED RINGER'S 1,000 ML IV PRN ×2 (16:00→19:46)
[2021-01-31 16:08] LABS: Hematocrit (blood only) 33.6 % (37-47); Hemoglobin 11.8 g/dL (12.0-16.0); Mean Corpuscular Hemoglobin 34.3 pg (25-34); Mean Corpuscular Hgb Conc 35.1 g/dL (32-36); Mean Corpuscular Volume 97.7 fL (80-100); Mean Platelet Volume 9.6 fL (7.4-10.4); Platelet Count 228 K/uL (130-400); RDW Coefficient of Variation 12.4 % (11.5-14.5); RDW Standard Deviation 44.5 fL (36.4-46.3); Red Blood Count 3.44 M/uL (4.2-5.4); White Blood Count 11.43 K/uL (4.8-10.8)
[2021-01-31 17:55] LABS: Amphetamines+Metham, Urine Neg (Neg); Barbiturates, Urine Neg (Neg); Benzodiazepine, Urine Neg (Neg); Cocaine, Urine Neg (Neg); MDMA (Ecstacy), Urine Neg (Neg); Methadone, Urine Neg (Neg); Opiate, Urine Neg (Neg); Phencyclidine, Urine Neg (Neg)
[2021-01-31] MEDS ORDERED: ePHEDrine sulfate 50 MG/ML AMP ONE (19:19)
[2021-01-31] MEDS ORDERED: SODIUM CHLORIDE 0.9% INJ 10 ML VIAL ONE (19:20)
[2021-01-31] MEDS ORDERED: fentaNYL 2MCG/ML ROPIVACAINE 1.25MG/ML 100 ML BAG EPI ONE (19:20)
[2021-01-31] MEDS ORDERED: fentaNYL citrate 100 MCG/2 ML VIAL ONE (19:20)
[2021-01-31] MEDS ORDERED: BUPIVACAINE 0.25% 30 ML VIAL ONE (19:20)
[2021-01-31] MEDS ORDERED: NALBUPHINE HCL INJ 10 MG/ML AMP IV PRN (19:57)
[2021-01-31] MEDS ORDERED: NALOXONE HCL 0.4 MG/1 ML VIAL/CARP IV PRN (19:57)
[2021-01-31] MEDS ORDERED: ePHEDrine sulfate 50 MG/ML AMP IV PRN (19:57)
[2021-01-31] MEDS ORDERED: fentaNYL 2MCG/ML ROPIVACAINE 1.25MG/ML 100 ML BAG EPI PRN (19:57)
[2021-01-31] MEDS ORDERED: NALOXONE HCL 1 MG in SODIUM CHLORIDE 0.9% 1000ML 1,000 ML IV PRN (19:57)
[2021-01-31] MEDS ORDERED: PROMETHAZINE HCL 6.25 MG in SODIUM CHLORIDE 0.9% 50 ML IV PRN (19:57)
[2021-01-31] MEDS ORDERED: ONDANSETRON INJ 2 MG/ML 2 ML VIAL IV PRN (19:57)
[2021-01-31] MEDS ORDERED: diphenhydrAMINE 50 MG/ML VIAL IV PRN (19:57)
--- NOTE | 2021-01-31 19:57 | Anesthesiology Consultation ---
Date of Service January 31, 2021 Assessment & Plan (1) Encounter for pre-operative examination: Chart Review Chart Review: Patient NOT seen in Pre Admission Testing and Acceptable Risk for Labor Epidural Consults Requested none ASA ASA2 Proposed Anesthesia Anesthesia Type: Labor Epidural Risk / Benefits Reviewed With: PT / POA / Parent / Guardian, Accepts Plan and Informed Consent Obtained History Height/Weight Height: 5 ft 3 in Weight: 72.575 kg Allergies Allergy/AdvReac Type Severity Reaction Status Date / Time No Known Allergies Allergy Verified 09/16/20 18:37 Medications Home Medications Medication Instructions Recorded Confirmed Last Taken vitamin with calcium 1 tab PO DAILY 09/16/20 01/31/21 01/31/21 09:00 no.72-iron 27 mg-folic acid 1 mg tablet ( Vitamins Plus Low Iron) buprenorphine HCl 8 mg sublingual 4 mg SUBLINGUAL BID 01/31/21 01/31/21 01/31/21 09:00 tablet Active Medications Generic Name Dose Route Start Last Admin Trade Name Freq PRN Reason Stop Dose Admin Lactated Ringer's 1,000 mls @ 125 mls/hr 01/31/21 15:28 01/31/21 19:46 Lr IV 02/02/21 15:27 125 mls/hr .Q8H PRN Administration L&D Protocol Protocol Past Medical History Medical History (Updated 01/31/21 @ 19:57 by Josh Gil MD) Anxiety Uses medical marijuana (vapes) Medical marijuana use Opioid dependence on agonist therapy History of heroin abuse, on Subutex Exercise / Class Metabolic Activity II 4-5 Yardwork/Stairs/Walk up hill Past Surgical History Surgical History (Updated 01/31/21 @ 15:49 by Delta Argueta MD) H/O section Past Anesthesia History No Hx of Anesthesia Complications and No Family Hx of Anesthesia Complications History of PONV No Hx of PONV and No Hx of Motion Sickness Social History Smoking Status: Heavy tobacco smoker tobacco type: cigarettes Do You Dip or Chew Tobacco: No Hx Alcohol Use: No Hx Substance Use: No substance use type: former substance user, marijuana and prescription drug Substance Use Type Other:: Marijuana and Subutex Last Used Substance: Hours (ago) Last Used Substance Other:: Took Subutex this morning Physical Exam Vital Signs Last Vital Signs Temp 36.7 C 01/31/21 19:09 Pulse 79 01/31/21 19:55 Resp 20 01/31/21 19:09 BP 114/63 01/31/21 19:55 Pulse Ox 100 01/31/21 19:53 ENMT Mouth: no dentition abnormality Thyromental Distance: > or= 3.5 Finger Breadths Mallampati Class: II Neck normal visual inspection Respiratory normal respiratory effort Auscultation: lungs clear to auscultation bilaterally Cardiovascular Rate/Rhythm: regular rate and regular rhythm Psychiatric Orientation: alert Testing Laboratory Results 01/31/21 15:59 Blood Type A Positive 01/31/21 15:59 Antibody Screen NEGATIVE 01/31/21 15:59
--- NOTE | 2021-01-31 20:37 | Labor Progress Brief Note ---
Date of Service January 31, 2021 Assessment & Plan Admission and Anticipated Discharge Date Admission Date: January 31, 2021 Physical Exam Genitourinary: Manual OB Exam: + cervical dilation 5 cm, + cervical effacement 90%, + station -1 and + amniotic fluid (AROM with scant blood tinged fluid) bloody OB Exam Monitor Tracing: + external FHT monitor used, + external uterine monitor used, + category I and + normal FHT variability will start Oxytocin to augment contractions that have spaced out Results & Data ([facility]) Vital Signs (Past 12 Hours) Vital Signs Temp Pulse Resp BP Pulse Ox 01/31/21 20:32 88 118/69 01/31/21 20:28 88 100 01/31/21 20:23 82 100 01/31/21 20:18 83 100 01/31/21 20:16 82 107/59 L 01/31/21 20:13 75 100 01/31/21 20:08 82 100 01/31/21 20:03 83 100 01/31/21 20:01 82 118/66 01/31/21 20:00 18 01/31/21 19:59 87 107/62 01/31/21 19:58 87 100 01/31/21 19:57 84 107/62 01/31/21 19:55 79 114/63 01/31/21 19:53 79 111/64 100 01/31/21 19:51 78 115/63 01/31/21 19:49 77 115/61 01/31/21 19:48 82 100 01/31/21 19:47 82 120/58 L 01/31/21 19:45 75 106/53 L 01/31/21 19:43 69 134/55 L 100 01/31/21 19:41 86 127/68 01/31/21 19:38 76 100 01/31/21 19:36 81 145/68 H 88 L 01/31/21 19:33 92 H 100 01/31/21 19:28 75 100 01/31/21 19:09 36.7 C 20 01/31/21 19:08 36.6 C 36 L 20 118/86 01/31/21 15:07 101 H 108/69 01/31/21 14:58 36.8 C 101 H 20 108/69
[2021-01-31] MEDS: buprenorphine HCL 2 MG SUBL SL SCH (21:06)
--- NOTE | 2021-01-31 22:08 | Labor Progress Brief Note ---
Date of Service January 31, 2021 Assessment & Plan Admission and Anticipated Discharge Date Admission Date: January 31, 2021 Physical Exam Genitourinary: Manual OB Exam: + cervical dilation 7 cm, + cervical effacement 100% and + station 0 OB Exam Monitor Tracing: + external FHT monitor used, + external uterine monitor used, + category II and + normal FHT variability Results & Data ([facility]) Vital Signs (Past 12 Hours) Vital Signs Temp Pulse Resp BP Pulse Ox 01/31/21 22:05 81 91/53 L 01/31/21 22:03 98 H 88/54 L 100 01/31/21 21:58 75 98 01/31/21 21:53 71 98 01/31/21 21:48 73 98 01/31/21 21:47 78 103/60 01/31/21 21:43 71 98 01/31/21 21:38 74 99 01/31/21 21:33 77 100 01/31/21 21:32 79 98/58 L 01/31/21 21:30 18 01/31/21 21:28 80 99 01/31/21 21:23 77 100 01/31/21 21:18 79 100 01/31/21 21:16 88 114/67 01/31/21 21:13 82 100 01/31/21 21:08 76 100 01/31/21 21:03 78 100 01/31/21 21:02 78 113/63 01/31/21 21:00 36.6 C 18 01/31/21 20:58 80 100 01/31/21 20:53 83 100 01/31/21 20:48 83 113/62 100 01/31/21 20:43 83 100 01/31/21 20:38 77 100 01/31/21 20:33 101 H 100 01/31/21 20:32 88 118/69 01/31/21 20:30 18 01/31/21 20:28 88 100 01/31/21 20:23 82 100 01/31/21 20:18 83 100 01/31/21 20:16 82 107/59 L 01/31/21 20:13 75 100 01/31/21 20:08 82 100 01/31/21 20:03 83 100 01/31/21 20:01 82 118/66 01/31/21 20:00 18 01/31/21 19:59 87 107/62 01/31/21 19:58 87 100 01/31/21 19:57 84 107/62 01/31/21 19:55 79 114/63 01/31/21 19:53 79 111/64 100 01/31/21 19:51 78 115/63 01/31/21 19:49 77 115/61 01/31/21 19:48 82 100 01/31/21 19:47 82 120/58 L 01/31/21 19:45 75 106/53 L 01/31/21 19:43 69 134/55 L 100 01/31/21 19:41 86 127/68 01/31/21 19:38 76 100 01/31/21 19:36 81 145/68 H 88 L 01/31/21 19:33 92 H 100 01/31/21 19:28 75 100 01/31/21 19:09 36.7 C 20 01/31/21 19:08 36.6 C 36 L 20 118/86 01/31/21 15:07 101 H 108/69 01/31/21 14:58 36.8 C 101 H 20 108/69
[2021-02-01] MEDS: LACTATED RINGER'S 1,000 ML IV PRN (01:58)
[2021-02-01] MEDS ORDERED: DIPHTHERIA/TETANUS/PERTUSSIS 0.5 ML SYR/VIAL IM ONE (02:48)
[2021-02-01] MEDS ORDERED: BENZOCAINE 20% AER SPR 82.5 GM CAN EXT PRN (02:48)
[2021-02-01] MEDS ORDERED: HYDROCORTISONE ACETATE 25 MG SUPP PR PRN (02:48)
[2021-02-01] MEDS ORDERED: SUPERCREAM 0.870% 15 GM JAR EXT PRN (02:48)
[2021-02-01] MEDS ORDERED: ACETAMINOPHEN 325 MG TAB PO PRN (02:48)
[2021-02-01] MEDS ORDERED: OXYTOCIN 30 UNITS/500 ML BAG IV PRN (02:48)
--- NOTE | 2021-02-01 02:51 | Delivery Summary ---
Vaginal Delivery Summary Date of Service February 01, 2021 Vaginal Delivery Summary Delivery Note live male SAMANTHA over intact perineum with delayed cord clamping and Apgars 8/9, weight pending. Cord blood obtained followed by spontaneous delivery of intact placenta. First degree tear repaired with 3/0 Vicryl. EBL 200 ml. Final sponge and needle count are correct. Mom and baby stable.
--- NOTE | 2021-02-01 03:07 | Anesthesiology Progress Note ---
Date of Service February 01, 2021 Anesthesia Post Procedure Vital Signs Vital Signs: Temp Pulse Resp BP Pulse Ox 02/01/21 03:02 91 H 104/60 02/01/21 02:47 80 101/55 L 02/01/21 02:32 108 H 115/65 02/01/21 02:31 102 H 97 02/01/21 02:29 110 H 89 L 02/01/21 02:26 106 H 82 L 02/01/21 02:23 99 H 90 02/01/21 02:21 99 H 100 02/01/21 02:16 80 100 02/01/21 02:11 88 100 02/01/21 02:10 88 124/58 L 02/01/21 02:09 106 H 91 02/01/21 02:06 107 H 97 02/01/21 02:01 86 100 02/01/21 01:49 83 148/62 H 02/01/21 01:48 87 81 L 02/01/21 01:43 87 98 02/01/21 01:38 93 H 92 02/01/21 01:35 103 H 92 02/01/21 01:33 95 H 100 02/01/21 01:32 101 H 127/66 02/01/21 01:29 109 H 80 L 02/01/21 01:28 109 H 96 02/01/21 01:23 102 H 97 02/01/21 01:21 96 H 92 02/01/21 01:18 111 H 99 02/01/21 01:17 118 H 117/94 02/01/21 01:15 86 93 02/01/21 01:13 100 H 74 L 02/01/21 01:08 95 H 76 L 02/01/21 01:07 89 90 02/01/21 01:03 103 H 98 02/01/21 01:01 78 115/78 02/01/21 00:58 80 100 02/01/21 00:53 90 100 02/01/21 00:48 79 100 02/01/21 00:47 70 116/78 02/01/21 00:43 69 100 02/01/21 00:38 77 100 02/01/21 00:33 76 100 02/01/21 00:32 78 121/80 02/01/21 00:28 72 100 02/01/21 00:23 74 100 02/01/21 00:18 70 100 02/01/21 00:17 69 96/57 L 02/01/21 00:13 70 98 02/01/21 00:08 68 99 02/01/21 00:03 69 100/59 L 99 01/31/21 23:58 67 99 01/31/21 23:53 77 99 01/31/21 23:48 79 98 01/31/21 23:46 74 92/54 L 01/31/21 23:43 70 98 01/31/21 23:38 74 97 01/31/21 23:33 70 98 01/31/21 23:32 70 98/57 L 01/31/21 23:28 82 98 01/31/21 23:23 79 99 01/31/21 23:18 80 99 01/31/21 23:16 90 96/61 L 01/31/21 23:15 36.6 C 01/31/21 23:13 72 99 01/31/21 23:08 91 H 99 01/31/21 23:03 78 98 01/31/21 23:02 83 108/56 L 01/31/21 22:58 76 98 01/31/21 22:53 73 99 01/31/21 22:48 91 H 91/52 L 99 01/31/21 22:43 74 99 01/31/21 22:38 74 98 01/31/21 22:33 75 98 01/31/21 22:32 71 93/55 L 01/31/21 22:30 18 01/31/21 22:28 88 100 01/31/21 22:23 72 98 01/31/21 22:18 81 99 01/31/21 22:17 81 91/54 L 01/31/21 22:13 78 99 01/31/21 22:12 85 91/52 L 01/31/21 22:08 84 100 01/31/21 22:05 81 91/53 L 01/31/21 22:03 98 H 88/54 L 100 01/31/21 21:59 18 01/31/21 21:58 75 98 01/31/21 21:53 71 98 01/31/21 21:48 73 98 01/31/21 21:47 78 103/60 01/31/21 21:43 71 98 01/31/21 21:38 74 99 01/31/21 21:33 77 100 1821 21:32 79 98/58 L 01/31/21 21:30 18 01/31/21 21:28 80 99 01/31/21 21:23 77 100 01/31/21 21:18 79 100 01/31/21 21:16 88 114/67 18 21:13 82 100 18 21:08 76 100 01/31/21 21:03 78 100 01/31/21 21:02 78 113/63 01/31/21 21:00 36.6 C 18 01/31/21 20:58 80 100 18 20:53 83 100 01/31/21 20:48 83 113/62 100 01/31/21 20:43 83 100 01/31/21 20:38 77 100 01/31/21 20:33 101 H 100 01/31/21 20:32 88 118/69 01/31/21 20:30 18 01/31/21 20:28 88 100 01/31/21 20:23 82 100 01/31/21 20:18 83 100 01/31/21 20:16 82 107/59 L 01/31/21 20:13 75 100 01/31/21 20:08 82 100 01/31/21 20:03 83 100 01/31/21 20:01 82 118/66 01/31/21 20:00 18 01/31/21 19:59 87 107/62 01/31/21 19:58 87 100 01/31/21 19:57 84 107/62 01/31/21 19:55 79 114/63 01/31/21 19:53 79 111/64 100 18 19:51 78 115/63 01/31/21 19:49 77 115/61 18 19:48 82 100 18 19:47 82 120/58 L 01/31/21 19:45 75 106/53 L 01/31/21 19:43 69 134/55 L 100 01/31/21 19:41 86 127/68 1821 19:38 76 100 18 19:36 81 145/68 H 88 L 01/31/21 19:33 92 H 100 01/31/21 19:28 75 100 01/31/21 19:09 36.7 C 20 01/31/21 19:08 36.6 C 36 L 20 118/86 01/31/21 15:07 101 H 108/69 01/31/21 14:58 36.8 C 101 H 20 Notes Mental Status: alert / awake / arousable Nausea / Vomiting: adequately controlled Pain: adequately controlled Airway Patency, RR, SpO2: stable & adequate BP & HR: stable & adequate Hydration State: stable & adequate Neuraxial Anesthesia: was administered and sensory block is resolving Anesthetic Complications: no major complications apparent and Pt Satisfied with anesthetic care
[2021-02-01] MEDS: PRENATAL VITAMIN 1 TAB PO SCH (08:28)
[2021-02-01] MEDS: DOCUSATE SODIUM 100 MG CAP PO SCH ×2 (08:28→19:55)
[2021-02-01] MEDS: FERROUS SULFATE 325 MG TAB PO SCH (08:28)
[2021-02-01] MEDS: buprenorphine HCL 2 MG SUBL SL SCH ×2 (08:28→19:55)
[2021-02-01] MEDS ORDERED: buprenorphine HCL 2 MG SUBL SL SCH (09:00)
[2021-02-01] MEDS: IBUPROFEN 600 MG TAB PO PRN ×2 (17:26→21:35)
[2021-02-02] MEDS: IBUPROFEN 600 MG TAB PO PRN ×2 (02:56→08:46)
[2021-02-02 07:18] LABS: Hematocrit (blood only) 32.4 % (37-47); Hemoglobin 10.9 g/dL (12.0-16.0); Mean Corpuscular Hemoglobin 34.2 pg (25-34); Mean Corpuscular Hgb Conc 33.6 g/dL (32-36); Mean Corpuscular Volume 101.6 fL (80-100); Mean Platelet Volume 9.9 fL (7.4-10.4); Platelet Count 255 K/uL (130-400); RDW Coefficient of Variation 13.2 % (11.5-14.5); RDW Standard Deviation 48.9 fL (36.4-46.3); Red Blood Count 3.19 M/uL (4.2-5.4); White Blood Count 8.95 K/uL (4.8-10.8)
[2021-02-02] MEDS: FERROUS SULFATE 325 MG TAB PO SCH (08:45)
[2021-02-02] MEDS: DOCUSATE SODIUM 100 MG CAP PO SCH (08:45)
[2021-02-02] MEDS: PRENATAL VITAMIN 1 TAB PO SCH (08:45)
[2021-02-02] MEDS: buprenorphine HCL 2 MG SUBL SL SCH (08:46)
--- NOTE | 2021-02-02 13:01 | Obstetrical Progress Note ---
Date of Service February 02, 2021 Assessment & Plan PPD #2 pt doing well No complaints disch home with instructions Results & Data ([facility]) Vital Signs (Past 12 Hours) Vital Signs Temp Pulse Resp BP 02/02/21 08:10 36.7 C 80 18 111/73
[2021-02-02] MEDS ORDERED: bisacodyL 5 MG TABEC PO SCH (20:00)
[2021-02-03 00:17] LABS: Marijuana Quant, GCMS Urine 79 ng/mL (<5)
[2021-02-03] MEDS ORDERED: bisacodyL 10 MG SUPP PR PRN (06:00)
== END 2021-02-02 13:45 | disposition home or self-care (01) | DRG 806 ==
LOC: OPB 14:40 → 4S1 14:40 → 4S2 02-01 05:45